=== PATIENT | male | born 1995 | race Caucasian/White ===

== ENCOUNTER 2018-06-02 18:36 | Emergency (ER) | payer OTHER ==
[2018-06-02 18:53] VITALS: BP 131/91
--- NOTE | 2018-06-02 19:51 | UC ---
Complaint Male HPI - HPI Summary HPI Summary: 22-year-old male comes in with a chief complaint of right testicular groin pain. This morning he was walking in a store and had sudden onset of pain in the right testicle and right inguinal area shot up into his abdomen. The pain lasted several seconds and was moderate to severe. Pain is been intermittent he 's had several more episodes today. He had one in the waiting room of our clinic as he was moving from one seat to another. He cannot find a consistent movement makes the pain worse. Denies any concern of STI no dysuria. Denies any swelling or abdominal pain. He's had similar pain in the past but usually it's once or twice and it goes away and does not come back. Patient's getting checked now because of the multiple episodes during the day. No known recent trauma. - History of Current Complaint Chief Complaint: UCGeneralIllness Stated Complaint: PERSONAL Time Seen by Provider: 06/02/18 19:31 Pain Intensity: 6 - Allergies/Home Medications Allergies/Adverse Reactions: Allergies Allergy/AdvReac Type Severity Reaction Status Date / Time No Known Allergies Allergy Verified 02/24/16 09:10 PMH/Surg Hx/FS Hx/Imm Hx Previously Healthy: Yes - Surgical History Surgical History: None Surgery Procedure, Year, and Place: labrum reconstruction - Family History Known Family History: Positive: Non-Contributory - Social History Alcohol Use: None Substance Use Type: None Smoking Status (MU): Never Smoked Tobacco Review of Systems All Other Systems Reviewed And Are Negative: Yes Constitutional: Positive: Negative Skin: Positive: Negative Eyes: Positive: Negative ENT: Positive: Negative Respiratory: Positive: Negative Cardiovascular: Positive: Negative Gastrointestinal: Positive: Negative Genitourinary: Positive: Other - SEE HPI. Negative: Dysuria, Frequency, Urgency , Vaginal/Penile Discharge Motor: Positive: Negative Neurovascular: Positive: Negative Musculoskeletal: Positive: Negative Neurological: Positive: Negative Psychological: Positive: Negative Is Patient Immunocompromised?: No Physical Exam Triage Information Reviewed: Yes Appearance: Well-Appearing, No Pain Distress, Well-Nourished Vital Signs: Initial Vital Signs Temp 98.7 F 06/02/18 18:44 Pulse 72 06/02/18 18:44 Resp 16 06/02/18 18:44 BP 131/91 06/02/18 18:44 Pulse Ox 99 06/02/18 18:44 Vital Signs Reviewed: Yes Eye Exam: Normal Eyes: Positive: Conjunctiva Clear Neck exam: Normal Neck: Positive: Supple Respiratory: Positive: Lungs clear, Normal breath sounds, No respiratory distress Cardiovascular: Positive: RRR Abdominal Exam: Normal Abdomen Description: Positive: Nontender, Soft. Negative: CVA Tenderness (R), CVA Tenderness (L) Bowel Sounds: Positive: Present Male Genital Exam: Positive: Normal Genitalia, No Hernia, Other - On examination I do not palpate any masses in the inguinal canal. Testicles are smooth and not swollen nontender to palpation the epididymides are nontender to palpation. No masses or tenderness on examination.. Negative: Epididymal Tenderness, Hernia Mass, Inguinal Tenderness, Lesions, Scrotum Tenderness (R), Scrotum Tenderness (L), Testicular Tenderness (R), Testicular Tenderness (L), Urethral Discharge Complaint Male Course/Dx - Course Course Of Treatment: Examination was normal. I discussed with the patient going to the emergency department for an ultrasound to further evaluate the cause of his pain. We discussed that testicular torsion symptoms would be continued pain and is swollen testicle. We also discussed intermittent testicular torsion can occur and can give you intermittent pain. We also discussed cremasteric muscle strain and inguinal hernia symptoms. Because his exam is normal and he has no pain I recommended follow-up with the emergency department with an ultrasound if the pain returns or worsens or persists or he has any other questions or concerns. - Differential Dx/Diagnosis Provider Diagnosis: Right testicular pain, Right inguinal pain Discharge - Sign-Out/Discharge Documenting (check all that apply): Patient Departure All imaging exams completed and their final reports reviewed: No Studies - Discharge Plan Condition: Stable Disposition: HOME Patient Education Materials: Testicle Pain (ED), Scrotal Pain (ED) Referrals: [facility] @ [Outside] Abdi Montemayor MD [Medical Doctor] - Anish Bermeo MD [Medical Doctor] - Additional Instructions: FOLLOW UP WITH UROLOGY IF NOT COMPLETELY IMPROVED. GO TO THE EMERGENCY DEPARTMENT WITH ANY WORSENING OF YOUR CONDITION; PAIN, SWELLING, FEVER, YOU FEEL ILL OR QUESTIONS OR CONCERNS. - Billing Disposition and Condition Condition: STABLE Disposition: Home
== END 2018-06-02 19:55 | disposition home or self-care (01) ==
LOC: UCEAST 18:36
DX: N50.811 Right testicular pain (principal); R10.30 Lower abdominal pain, unspecified
CPT/HCPCS: 99201; G0463